=== PATIENT | male | born 1980 | race Caucasian/White ===

== ENCOUNTER 2019-10-11 10:13 | Inpatient (IN) | payer OTHER ==
[~2019-10-11] VITALS: Ht 177.8 cm; Wt 82.0 kg
[~2019-10-11 10:13] MED LIST: ACET-2065 PO; CEFT2PIG2 IVPB; DOXY-162 PO; HYDR-3237 PO; IMITREX; SUMA50TA4 PO
--- NOTE | 2019-10-11 11:24 | NUR ---
Poc clarified with ER provider: Patient to go to Interventional Radiology for Lumbar Puncture shortly. Provider updated patient
[2019-10-11] MEDS ORDERED: PENICILLIN GK IV SCH (12:00)
[2019-10-11] MEDS ORDERED: SODIUM CHLORIDE 0.9% IV SCH (12:00)
--- NOTE | 2019-10-11 12:05 | NUR ---
H[employer]ER OPERATOR CALLED IR TO EXPEDITE PATIENT'S LUMBAR PUNCTURE. CLARIFIED PATIENT HAS BEEN OFF PLAVIX SINCE 10/06/19. DR. SAMANIEGO REVIEWING CASE AND WILL NOTIFY WHEN READY
--- NOTE | 2019-10-11 12:18 | NUR ---
CLARIFIED WITH PJ ROCK THAT LP SPECIMEN WOULD NEED TO BE OBTAINED PRIOR TO ANTIBIOTIC ADMINISTRATION. AIXA KRUSE RN MADE AWARE
[2019-10-11] MEDS ORDERED: CLOP75TA52 PO (12:27)
[2019-10-11] MEDS ORDERED: SUMATRIPTAN 50 MG TABLET PO PRN (12:30)
[2019-10-11] MEDS ORDERED: DOCUSATE 100 MG CAPSULE PO PRN (12:30)
[2019-10-11] MEDS ORDERED: ACETAMINOPHEN 325 MG TABLET PO PRN (12:30)
[2019-10-11] MEDS ORDERED: ONDANSETRON 2MG/ML, 2ML IVPush PRN (12:30)
[2019-10-11] MEDS ORDERED: hydrALAzine 20 MG/ML, 1ML IVPush PRN (12:30)
[2019-10-11 12:38] VITALS: BP 115/78
[2019-10-11 14:00] VITALS: BP 115/78
[2019-10-11 17:17] LABS: GLUCOSE, CSF 39 mg/dL (40-80); TOTAL PROTEIN,CSF 126 mg/dL (15-45)
[2019-10-11] MEDS: SODIUM CHLORIDE 0.9% IV SCH ×2 (18:01→21:38)
[2019-10-11] MEDS: PENICILLIN GK IV SCH ×2 (18:01→21:38)
[2019-10-11 19:00] VITALS: BP 120/82
[2019-10-11] MEDS: ATORVASTATIN 80 MG TABLET PO SCH (21:38)
[2019-10-12 01:23] VITALS: BP 112/73
[2019-10-12 05:59] LABS: BASOPHILS # (AUTO) 0.03 x10^3/uL (0-0.1); BASOPHILS % (AUTO) 1 % (0-1); EOSINOPHILS % (AUTO) 7 % (1-7); LYMPHOCYTES % (AUTO) 28 % (22-44); MD NO; MEAN CORPUSCULAR HEMOGLOBIN 30.3 pg (27.5-34.5); MEAN CORPUSCULAR HGB CONC 34.1 g/dL (33.2-36.2); MEAN CORPUSCULAR VOLUME 88.7 fL (81-97); MEAN PLATELET VOLUME 7.8 fL (7.4-10.4); MONOCYTES # (AUTO) 0.56 x10^3/uL (0.2-0.8); MONOCYTES % (AUTO) 9 % (2-9); NEUTROPHILS # (AUTO) 3.28 x10^3/uL (1.8-6.8); NEUTROPHILS % (AUTO) 55 % (42-75); PLATELET COUNT 188 x10^3/uL (130-400); RED BLOOD COUNT 4.44 x10^6/uL (4.38-5.82)
[2019-10-12 06:09] LABS: ANION GAP 8 mmol/L (5-15); CALCIUM 8.5 mg/dL (8.5-10.1); CHLORIDE 112 mmol/L (98-107); CREATININE 0.96 mg/dL (0.7-1.3)
[2019-10-12 08:20] VITALS: BP 135/75
[2019-10-12] MEDS: SODIUM CHLORIDE 0.9% IV SCH ×2 (09:42→21:28)
[2019-10-12] MEDS: PENICILLIN GK IV SCH ×2 (09:42→21:28)
[2019-10-12] MEDS: ASPIRIN 81 MG TABLET EC PO SCH (11:25)
[2019-10-12 15:41] VITALS: BP 115/78
[2019-10-12] MEDS: ATORVASTATIN 80 MG TABLET PO SCH (20:28)
[2019-10-12 20:44] VITALS: BP 107/76
[2019-10-13 01:47] VITALS: BP 116/82
[2019-10-13] MEDS: ASPIRIN 81 MG TABLET EC PO SCH (05:31)
[2019-10-13 07:17] VITALS: BP 109/67
[2019-10-13] MEDS: PENICILLIN GK IV SCH ×2 (09:19→21:13)
[2019-10-13] MEDS: SODIUM CHLORIDE 0.9% IV SCH ×2 (09:19→21:13)
[2019-10-13 12:30] VITALS: BP 114/76
[2019-10-13 20:06] VITALS: BP 128/85
[2019-10-13] MEDS: ATORVASTATIN 80 MG TABLET PO SCH (21:13)
[2019-10-14 03:31] VITALS: BP 123/83
[2019-10-14] MEDS: ASPIRIN 81 MG TABLET EC PO SCH (05:10)
[2019-10-14 05:26] LABS: BASOPHILS # (AUTO) 0.03 x10^3/uL (0-0.1); BASOPHILS % (AUTO) 1 % (0-1); EOSINOPHILS # (AUTO) 0.43 x10^3/uL (0-0.4); EOSINOPHILS % (AUTO) 7 % (1-7); LYMPHOCYTES # (AUTO) 1.88 x10^3/uL (1-3.4); LYMPHOCYTES % (AUTO) 32 % (22-44); MD NO; MEAN CORPUSCULAR HEMOGLOBIN 29.9 pg (27.5-34.5); MEAN CORPUSCULAR HGB CONC 33.8 g/dL (33.2-36.2); MEAN CORPUSCULAR VOLUME 88.4 fL (81-97); MEAN PLATELET VOLUME 7.6 fL (7.4-10.4); MONOCYTES # (AUTO) 0.86 x10^3/uL (0.2-0.8); MONOCYTES % (AUTO) 15 % (2-9); NEUTROPHILS # (AUTO) 2.71 x10^3/uL (1.8-6.8); NEUTROPHILS % (AUTO) 46 % (42-75); PLATELET COUNT 220 x10^3/uL (130-400); RED BLOOD COUNT 4.86 x10^6/uL (4.38-5.82); RED CELL DISTRIBUTION WIDTH 12.9 % (9.4-14.8)
[2019-10-14 05:31] LABS: ANION GAP 5 mmol/L (5-15); CALCIUM 8.7 mg/dL (8.5-10.1); CHLORIDE 108 mmol/L (98-107); CREATININE 0.83 mg/dL (0.7-1.3)
[2019-10-14 08:33] VITALS: BP 120/79
[2019-10-14] MEDS: SODIUM CHLORIDE 0.9% IV SCH ×2 (10:14→21:30)
[2019-10-14] MEDS: PENICILLIN GK IV SCH ×2 (10:14→21:30)
[2019-10-14 13:15] VITALS: BP 121/75
[2019-10-14 19:13] VITALS: BP 131/90
[2019-10-14] MEDS: ATORVASTATIN 80 MG TABLET PO SCH (21:29)
[2019-10-15 01:14] VITALS: BP 122/84
[2019-10-15] MEDS: ASPIRIN 81 MG TABLET EC PO SCH (05:41)
[2019-10-15 06:54] VITALS: BP 107/73
[2019-10-15] MEDS: SODIUM CHLORIDE 0.9% IV SCH ×2 (09:50→21:09)
[2019-10-15] MEDS: PENICILLIN GK IV SCH ×2 (09:50→21:09)
[2019-10-15 14:05] VITALS: BP 113/78
[2019-10-15 20:26] VITALS: BP 120/74
[2019-10-15] MEDS: ATORVASTATIN 80 MG TABLET PO SCH (21:06)
[2019-10-16 02:41] VITALS: BP 111/71
[2019-10-16] MEDS: ASPIRIN 81 MG TABLET EC PO SCH (06:00)
[2019-10-16 06:40] VITALS: BP 123/72
[2019-10-16] MEDS: SODIUM CHLORIDE 0.9% IV SCH ×2 (08:41→21:46)
[2019-10-16] MEDS: PENICILLIN GK IV SCH ×2 (08:41→21:46)
[2019-10-16 13:18] VITALS: BP 117/81
[2019-10-16] MEDS: ATORVASTATIN 80 MG TABLET PO SCH (20:32)
[2019-10-16 21:03] VITALS: BP 117/94
[2019-10-17 02:42] VITALS: BP 107/72
[2019-10-17] MEDS: ASPIRIN 81 MG TABLET EC PO SCH (06:13)
[2019-10-17 07:08] VITALS: BP 112/74
[2019-10-17] MEDS: SODIUM CHLORIDE 0.9% IV SCH ×2 (10:04→21:50)
[2019-10-17] MEDS: PENICILLIN GK IV SCH ×2 (10:04→21:50)
[2019-10-17 13:53] VITALS: BP 115/85
[2019-10-17 19:31] VITALS: BP 133/80
[2019-10-17] MEDS: ATORVASTATIN 80 MG TABLET PO SCH (21:50)
[2019-10-18 00:43] VITALS: BP 137/86
[2019-10-18] MEDS: ASPIRIN 81 MG TABLET EC PO SCH (05:22)
[2019-10-18 07:14] VITALS: BP 111/74
[2019-10-18] MEDS: PENICILLIN GK IV SCH ×2 (09:56→21:19)
[2019-10-18] MEDS: SODIUM CHLORIDE 0.9% IV SCH ×2 (09:56→21:19)
[2019-10-18 14:15] VITALS: BP 118/80
[2019-10-18 18:31] VITALS: BP 114/75
[2019-10-18] MEDS: ATORVASTATIN 80 MG TABLET PO SCH (21:19)
[2019-10-19 01:34] VITALS: BP 107/73
[2019-10-19] MEDS: ASPIRIN 81 MG TABLET EC PO SCH (05:45)
[2019-10-19 06:49] VITALS: BP 119/76
[2019-10-19] MEDS: PENICILLIN GK IV SCH ×3 (09:19→21:30)
[2019-10-19] MEDS: SODIUM CHLORIDE 0.9% IV SCH ×3 (09:19→21:30)
[2019-10-19 14:31] VITALS: BP 116/76
[2019-10-19 18:19] VITALS: BP 120/80
[2019-10-19] MEDS: ATORVASTATIN 80 MG TABLET PO SCH (21:16)
[2019-10-20 00:52] VITALS: BP 117/79
[2019-10-20] MEDS: SODIUM CHLORIDE 0.9% IV SCH ×2 (06:12→20:25)
[2019-10-20] MEDS: PENICILLIN GK IV SCH ×2 (06:12→20:25)
[2019-10-20] MEDS: ASPIRIN 81 MG TABLET EC PO SCH (06:13)
[2019-10-20 06:58] VITALS: BP 108/74
[2019-10-20 12:24] VITALS: BP 115/79
[2019-10-20 18:37] VITALS: BP 128/84
[2019-10-20] MEDS: ATORVASTATIN 80 MG TABLET PO SCH (20:25)
[2019-10-21 00:30] VITALS: BP 115/75
[2019-10-21] MEDS: ASPIRIN 81 MG TABLET EC PO SCH (06:04)
[2019-10-21 07:31] VITALS: BP 119/72
[2019-10-21] MEDS: PENICILLIN GK IV SCH ×2 (09:41→20:01)
[2019-10-21] MEDS: SODIUM CHLORIDE 0.9% IV SCH ×2 (09:41→20:01)
[2019-10-21 14:34] VITALS: BP 121/80
[2019-10-21 18:43] VITALS: BP 123/80
[2019-10-21] MEDS: ATORVASTATIN 80 MG TABLET PO SCH (20:01)
[2019-10-22 01:16] VITALS: BP 109/74
[2019-10-22] MEDS: ASPIRIN 81 MG TABLET EC PO SCH (06:08)
[2019-10-22 07:33] VITALS: BP 111/75
[2019-10-22] MEDS: SODIUM CHLORIDE 0.9% IV SCH ×2 (08:53→21:31)
[2019-10-22] MEDS: PENICILLIN GK IV SCH ×2 (08:53→21:31)
[2019-10-22 14:32] VITALS: BP 114/77
[2019-10-22 19:56] VITALS: BP 124/84
[2019-10-22] MEDS: ATORVASTATIN 80 MG TABLET PO SCH (21:31)
[2019-10-23 00:14] VITALS: BP 125/80
[2019-10-23] MEDS: ASPIRIN 81 MG TABLET EC PO SCH (05:26)
[2019-10-23 06:50] VITALS: BP 119/73
[2019-10-23] MEDS: SODIUM CHLORIDE 0.9% IV SCH ×3 (08:23→23:00)
[2019-10-23] MEDS: PENICILLIN GK IV SCH ×3 (08:23→23:00)
[2019-10-23 14:19] VITALS: BP 107/82
[2019-10-23 19:00] VITALS: BP 111/71
[2019-10-23] MEDS: ATORVASTATIN 80 MG TABLET PO SCH (20:11)
[2019-10-24 00:32] VITALS: BP 112/77
[2019-10-24 04:51] LABS: BASOPHILS # (AUTO) 0.03 x10^3/uL (0-0.1); BASOPHILS % (AUTO) 1 % (0-1); EOSINOPHILS # (AUTO) 0.44 x10^3/uL (0-0.4); EOSINOPHILS % (AUTO) 7 % (1-7); LYMPHOCYTES # (AUTO) 2.07 x10^3/uL (1-3.4); LYMPHOCYTES % (AUTO) 33 % (22-44); MD NO; MEAN CORPUSCULAR HGB CONC 33.4 g/dL (33.2-36.2); MEAN CORPUSCULAR VOLUME 89.7 fL (81-97); MEAN PLATELET VOLUME 7.3 fL (7.4-10.4); MONOCYTES # (AUTO) 0.97 x10^3/uL (0.2-0.8); MONOCYTES % (AUTO) 15 % (2-9); NEUTROPHILS # (AUTO) 2.83 x10^3/uL (1.8-6.8); NEUTROPHILS % (AUTO) 45 % (42-75); PLATELET COUNT 189 x10^3/uL (130-400); RED BLOOD COUNT 4.99 x10^6/uL (4.38-5.82); RED CELL DISTRIBUTION WIDTH 13.5 % (9.4-14.8)
[2019-10-24 05:03] LABS: ALBUMIN 2.8 g/dL (3.4-5.0); ANION GAP 5 mmol/L (5-15); CALCIUM 8.7 mg/dL (8.5-10.1); CHLORIDE 108 mmol/L (98-107)
[2019-10-24 05:06] LABS: ALANINE AMINOTRANSFERASE 75 U/L (12-78); ALKALINE PHOSPHATASE 114 U/L (45-117); BILIRUBIN,TOTAL 0.8 mg/dL (0.2-1.0); CREATININE 0.88 mg/dL (0.7-1.3); TOTAL PROTEIN 8.4 g/dL (6.4-8.2)
[2019-10-24] MEDS: ASPIRIN 81 MG TABLET EC PO SCH (05:39)
[2019-10-24 06:57] VITALS: BP 118/82
[2019-10-24] MEDS: SODIUM CHLORIDE 0.9% IV SCH ×2 (11:39→23:30)
[2019-10-24] MEDS: PENICILLIN GK IV SCH ×2 (11:39→23:30)
[2019-10-24 13:41] VITALS: BP 115/82
[2019-10-24 19:00] VITALS: BP 122/82
[2019-10-24] MEDS: ATORVASTATIN 80 MG TABLET PO SCH (20:01)
[2019-10-25 02:24] VITALS: BP 120/81
[2019-10-25 05:35] LABS: ANION GAP 8 mmol/L (5-15); CALCIUM 8.8 mg/dL (8.5-10.1); CHLORIDE 107 mmol/L (98-107)
[2019-10-25 05:36] LABS: CREATININE 0.85 mg/dL (0.7-1.3)
[2019-10-25 05:38] LABS: BASOPHILS # (AUTO) 0.03 x10^3/uL (0-0.1); BASOPHILS % (AUTO) 1 % (0-1); EOSINOPHILS # (AUTO) 0.46 x10^3/uL (0-0.4); EOSINOPHILS % (AUTO) 8 % (1-7); LYMPHOCYTES # (AUTO) 2.17 x10^3/uL (1-3.4); LYMPHOCYTES % (AUTO) 36 % (22-44); MD NO; MEAN CORPUSCULAR HGB CONC 33.5 g/dL (33.2-36.2); MEAN CORPUSCULAR VOLUME 89.7 fL (81-97); MEAN PLATELET VOLUME 7.2 fL (7.4-10.4); MONOCYTES # (AUTO) 0.93 x10^3/uL (0.2-0.8); MONOCYTES % (AUTO) 15 % (2-9); NEUTROPHILS # (AUTO) 2.46 x10^3/uL (1.8-6.8); NEUTROPHILS % (AUTO) 41 % (42-75); PLATELET COUNT 174 x10^3/uL (130-400); RED BLOOD COUNT 4.95 x10^6/uL (4.38-5.82); RED CELL DISTRIBUTION WIDTH 13.2 % (9.4-14.8)
[2019-10-25] MEDS: ASPIRIN 81 MG TABLET EC PO SCH (06:12)
[2019-10-25 06:51] VITALS: BP 116/77
[2019-10-25] MEDS: PENICILLIN GK IV SCH (12:06)
[2019-10-25] MEDS: SODIUM CHLORIDE 0.9% IV SCH (12:06)
[2019-10-25 12:54] VITALS: BP 113/80
[2019-10-25 18:53] VITALS: BP 154/85
[2019-10-25] MEDS: ATORVASTATIN 80 MG TABLET PO SCH (20:49)
[2019-10-26] MEDS: PENICILLIN GK IV SCH ×2 (00:03→12:00)
[2019-10-26] MEDS: SODIUM CHLORIDE 0.9% IV SCH ×2 (00:03→12:00)
[2019-10-26 00:34] VITALS: BP 114/78
[2019-10-26 05:25] LABS: MEAN CORPUSCULAR HEMOGLOBIN 30.2 pg (27.5-34.5); MEAN CORPUSCULAR HGB CONC 33.9 g/dL (33.2-36.2); MEAN CORPUSCULAR VOLUME 89.2 fL (81-97); MEAN PLATELET VOLUME 7.2 fL (7.4-10.4); PLATELET COUNT 170 x10^3/uL (130-400); RED CELL DISTRIBUTION WIDTH 13.4 % (9.4-14.8)
[2019-10-26 05:35] LABS: CHLORIDE 108 mmol/L (98-107)
[2019-10-26] MEDS: ASPIRIN 81 MG TABLET EC PO SCH (05:36)
[2019-10-26 05:48] LABS: ANION GAP 7 mmol/L (5-15); CALCIUM 8.7 mg/dL (8.5-10.1); CREATININE 0.89 mg/dL (0.7-1.3)
[2019-10-26 06:19] LABS: MD YES
[2019-10-26 06:28] LABS: <PLATELET ESTIMATE> ADEQUATE; <PLT MORPHOLOGY> NORMAL PLT MORPH; <RBC MORPHOLOGY> NORMAL; BASOS#(MANUAL) 0.06 x10^3/uL (0-0.1); BASOS% (MANUAL) 1 % (0-1); EOS% (MANUAL) 7 % (1-7); LYMPH#(MANUAL) 1.94 x10^3/uL (1-3.4); LYMPHS% (MANUAL) 34 % (22-44); MONOS#(MANUAL) 0.86 x10^3/uL (0.3-2.7); MONOS% (MANUAL) 15 % (2-9); SEG#(MANUAL) 2.45 x10^3/uL (1.8-6.8); SEGS% (MANUAL) 43 % (42-75); SMUDGE CELLS 1+
[2019-10-26 08:12] VITALS: BP 120/85
[2019-10-26] MEDS ORDERED: ASPI81TA45 PO (12:35)
[2019-10-26] MEDS ORDERED: ATOR-2 PO (12:35)
== END 2019-10-26 13:41 | disposition home or self-care (01) | DRG 57 ==
LOC: ED 11:58 → EDIP 12:04 → 3N 12:28 → DCLOUNGE 10-26 13:37
PROVIDERS: ADMIT Hospitalist; ATTEND Hospitalist
DX: A52.3 Neurosyphilis, unspecified (principal); B37.0 Candidal stomatitis; G81.90 Hemiplegia, unspecified affecting unspecified side; A53.0 Latent syphilis, unspecified as early or late; Z21 Asymptomatic human immunodeficiency virus [HIV] infection status; B18.2 Chronic viral hepatitis C; Z86.73 Personal history of transient ischemic attack (TIA), and cerebral infarction without residual deficits; Z88.0 Allergy status to penicillin; Z80.8 Family history of malignant neoplasm of other organs or systems; Z86.19 Personal history of other infectious and parasitic diseases; Z91.19 Patient's noncompliance with other medical treatment and regimen
CPT/HCPCS: 36415; 62328; 80048; 80053; 82945; 84157; 85025; 86592; 86780; 87532; 87899; 88108; 89051; 99285; G0378; J2540; J7040